=== PATIENT | male | born 1960 | race Caucasian/White ===

== ENCOUNTER 2017-12-04 07:37 | Emergency (ER) | payer OTHER ==
[2017-12-04 07:49] VITALS: BP 131/72
--- NOTE | 2017-12-04 08:41 | UC ---
Skin Complaint HPI - HPI Summary HPI Summary: COMPLAINS OF ONE WEEK OF A PAINFUL LESION ON HIS LEFT LOWER LIP. STATES HE PICKED AT A BUMP ABOUT A WEEK AGO AND SINCE THEN IT HAS BECOME LARGER AND MORE PAINFUL. DRAINED SOME SEROUS FLUID BUT NOW SEEMS TO BE CRUSTED OVER. DENIES ANY HISTORY OF COLD SORES. DENIES FEVER, ACHINESS, MALAISE. - History of Current Complaint Chief Complaint: UCSkin Time Seen by Provider: 12/04/17 08:02 Stated Complaint: LIP PAIN Hx Obtained From: Patient Onset/Duration: Sudden Onset, Lasting Days, Still Present Timing: Constant Onset Severity: Moderate Current Severity: Moderate Pain Intensity: 5 Pain Scale Used: 0-10 Numeric Location: Discrete - LEFT LOWER LIP Character: Pain, Redness, Raised Aggravating Factor(s): Touch Alleviating Factor(s): Nothing Associated Signs & Symptoms: Positive: Tenderness - Allergy/Home Medications Allergies/Adverse Reactions: Allergies Allergy/AdvReac Type Severity Reaction Status Date / Time No Known Allergies Allergy Verified 12/04/17 07:49 Home Medications: Home Medications Aspirin 81 mg PO QPM 12/04/17 [History Confirmed 12/04/17] Cetirizine HCl [Zyrtec] 10 mg PO QPM 12/04/17 [History Confirmed 12/04/17] Naproxen Sodium [Aleve] 2 tab PO ONCE PRN 12/04/17 [History Confirmed 12/04/17] Review of Systems Constitutional: Negative Skin: Other - LOWER LIP LESION Respiratory: Negative Cardiovascular: Negative Gastrointestinal: Negative All Other Systems Reviewed And Are Negative: Yes PMH/Surg Hx/FS Hx/Imm Hx Endocrine History: Hypothyroidism, Dyslipidemia Cardiovascular History: Hypertension - Surgical History Surgical History: Yes Surgery Procedure, Year, and Place: kidney removed. gallbladder. bone spur. ganglion cyst - Family History Known Family History: Positive: Cardiac Disease, Hypertension, Diabetes - Social History Alcohol Use: Occasionally Substance Use Type: None Smoking Status (MU): Never Smoked Tobacco Physical Exam Triage Information Reviewed: Yes Appearance: Well-Appearing, No Pain Distress, Well-Nourished Vital Signs: Initial Vital Signs Temp 98.1 F 12/04/17 07:41 Pulse 69 12/04/17 07:41 Resp 18 12/04/17 07:41 BP 131/72 12/04/17 07:41 Pulse Ox 98 12/04/17 07:41 Vital Signs Reviewed: Yes Eyes: Positive: Conjunctiva Clear ENT: Positive: Hearing grossly normal Neck: Positive: Supple Respiratory: Positive: No respiratory distress, No accessory muscle use Cardiovascular: Positive: Pulses Normal Abdomen Description: Positive: Soft Musculoskeletal: Positive: No Edema Neurological: Positive: Alert Psychological: Positive: Age Appropriate Behavior Skin: Positive: Other - 1CM TENDER, CRUSTED AREA LEFT LOWER LIP WITH SURROUNDING ERYTHEMA Course/Dx - Diagnoses Provider Diagnoses: LEFT LOWER LIP CELLULITIS Discharge - Sign-Out/Discharge Documenting (check all that apply): Patient Departure All imaging exams completed and their final reports reviewed: No Studies - Discharge Plan Condition: Stable Disposition: HOME Prescriptions: Cephalexin CAP* [Keflex 500 CAP*] 1,000 mg PO BID #28 cap Mupirocin 2% OINT* [Bactroban 2 % Oint*] 1 applic TOPICAL BID #1 tube Patient Education Materials: Cellulitis (ED) Referrals: Marcin MA,Samantha Hudson [Primary Care Provider] - If Needed Additional Instructions: APPLY WARM COMPRESSES SEVERAL TIMES DAILY. GIVEN THE APPEARANCE IT IS CERTAINLY POSSIBLE THAT THIS IS A RESOLVING COLD SORE BUT YOU HAVE NO PREVIOUS HISTORY OF THIS WE WILL TREAT YOUR SKIN LESION A BACTERIAL INFECTION WITH ORAL AND TOPICAL ANTIBIOTICS. IF YOU HAVE A RECURRENT SIMILAR LESION WOULD RECOMMEND HSV TESTING AT THAT TIME WITH YOUR PCP OR DERMATOLOGY. - Billing Disposition and Condition Condition: STABLE Disposition: Home
== END 2017-12-04 08:49 | disposition home or self-care (01) ==
LOC: UCEAST 07:37
DX: K13.0 Diseases of lips (principal); Z79.82 Long term (current) use of aspirin
CPT/HCPCS: 99212; G0463